=== PATIENT | male | born 1975 | race Caucasian/White ===

== ENCOUNTER 2025-05-29 11:34 | Inpatient (IN) ==
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
[2025-05-29] MEDS: SODIUM CHLORIDE 0.9% 1,000 ML IV SCH (12:29)
[2025-05-29] MEDS: ACETAMINOPHEN 1,000 MG/100 ML VIAL IV STA (12:30)
[2025-05-29 12:50] LABS: Hematocrit (blood only) 41.1 % (42.0-52.0); Hemoglobin 13.5 g/dl (14.0-18.0); Immature Granulocytes # (auto) 0.07 K/uL (0.01-0.20); Immature Granulocytes % (auto) 0.5 %; Mean Corpuscular Hemoglobin 30.2 pg (25.0-34.0); Mean Corpuscular Volume 91.9 fL (80.0-100.0); Platelet Count 176 K/uL (130-400); RDW Standard Deviation 40.7 fL (36.4-46.3); Red Blood Count 4.47 M/uL (4.70-6.10); White Blood Count 14.77 K/ul (4.8-10.8)
[2025-05-29 13:07] LABS: Alanine Aminotransferase 19.0 U/L (7-52); Albumin Globulin Ratio 1.5 (0.9-2); Albumin Level 3.8 gm/dl (3.4-5.0); Alkaline Phosphatase 69.0 U/L (34-104); Anion Gap 6.0 (3-11); Bilirubin,Total 0.6 mg/dl (0.2-1.0); Blood Urea Nitrogen 13.0 mg/dl (6-23); Calcium 8.8 mg/dl (8.6-10.3); Carbon Dioxide 29.0 mmol/L (21-32); Chloride 103.0 mmol/L (98-107); Creatinine Clr Calc Pharmacy 146.3 ml/min; Globulin 2.6 gm/dl (2.5-4.0); Glucose 142.0 mg/dl (70-99(Fasting)); Lipase 18.0 U/L (11-82); Magnesium 1.9 mg/dl (1.7-2.4); Potassium 3.7 mmol/L (3.5-5.1); Sodium 138.0 mmol/L (136-145); Total Protein 6.4 gm/dl (6.0-8.3)
[2025-05-29] MEDS: OPTIRAY 320 100ml IV ONE (13:25)
[2025-05-29 13:28] LABS: INR 1.0 (0.9-1.1); Prothrombin Time 10.4 Seconds (9.0-12.0)
--- NOTE | 2025-05-29 13:48 | CT Scan Report ---
Clinical History: Perineal abscess Technique: Axial computed tomography images were obtained of the abdomen and pelvis after the administration of intravenous contrast. Comparison is made to the prior CT dated 06/03/2024. Findings: The liver is overall of normal size, attenuation, and contour with no sign of cirrhosis or significant fatty infiltration. No liver mass lesion is seen. The portal vein is patent. The gallbladder appears unremarkable. No bile duct dilatation is noted. The spleen is of normal size. No focal splenic lesion is evident. The pancreas appears normal with no sign of acute or chronic pancreatitis and no mass lesion noted. The pancreatic duct is of normal caliber. The adrenal glands appear unremarkable. No definite renal or proximal ureteral calculi are seen on this contrast-enhanced study. There is no hydronephrosis or perinephric stranding. No renal mass lesion is identified. The aorta is of normal caliber. No abdominal adenopathy is seen. The stomach appears normal. There is no sign of small bowel obstruction. The colon appears unremarkable. The appendix appears normal also. No free intraperitoneal fluid or air is identified. No distal ureteral or bladder calculi are seen. No bladder mass lesion is evident. The iliac arteries are of normal caliber. No pelvic adenopathy is noted. There are bilateral vasectomy clips There is a 4 x 3 cm collection of fluid and air in the left perineum, consistent with an abscess. There is mild adjacent soft tissue stranding There is right lung base atelectasis. There is coronary atherosclerosis Mild thoracolumbar degenerative disc disease is seen. No fracture is identified. No focal osseous lesion is seen Impression: 1. 4 cm perianal abscess 2. Right lung base atelectasis 3. Coronary atherosclerosis ACT 112: Positive. There are findings on this exam that require communication between the performing entity and the patient following Patient Test Result Information Act ([place] ACT 112) guidelines. Electronically signed by Ángel Jiang 05-29-2025 13:48 PM
[2025-05-29] MEDS: PIPERACILLIN/TAZOBACTAM 4.5 GM/100 ML BAG IV ONE (14:46)
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
[2025-05-29] MEDS ORDERED: CYCLOBENZAPRINE HCL 5 MG TAB PO PRN (17:53)
[2025-05-29] MEDS: MoRPHine SULFATE 4 MG/ML 1 ML CARP\\VIAL ONE (18:15)
[2025-05-29] MEDS: MoRPHine SULFATE 4 MG/ML 1 ML CARP\\VIAL IV PRN (18:16)
[2025-05-29] MEDS: LACTATED RINGER'S 1,000 ML IV SCH (18:17)
[2025-05-29] MEDS: ACETAMINOPHEN SUSP 325 MG/10.15 ML UDC PO PRN (21:02)
[2025-05-29] MEDS: PIPERACILLIN/TAZOBACTAM 4.5 GM/100 ML BAG IV SCH (21:02)
[2025-05-30 00:06] LABS: Appearance Urine Clear (Clear); Glucose Urine UA Negative (Negative)
[2025-05-30] MEDS: ACETAMINOPHEN 1,000 MG/100 ML VIAL IV STA (04:35)
[2025-05-30 06:24] LABS: Hematocrit (blood only) 38.2 % (42.0-52.0); Hemoglobin 13.2 g/dl (14.0-18.0); Immature Granulocytes # (auto) 0.07 K/uL (0.01-0.20); Immature Granulocytes % (auto) 0.5 %; Mean Corpuscular Hemoglobin 31.7 pg (25.0-34.0); Mean Corpuscular Volume 91.8 fL (80.0-100.0); Platelet Count 179 K/uL (130-400); RDW Standard Deviation 41.1 fL (36.4-46.3); Red Blood Count 4.16 M/uL (4.70-6.10); White Blood Count 14.34 K/ul (4.8-10.8)
[2025-05-30 06:42] LABS: Anion Gap 7.0 (3-11); Blood Urea Nitrogen 10.0 mg/dl (6-23); Calcium 8.5 mg/dl (8.6-10.3); Carbon Dioxide 28.0 mmol/L (21-32); Chloride 103.0 mmol/L (98-107); Creatinine Clr Calc Pharmacy 144.3 ml/min; Glucose 125.0 mg/dl (70-99(Fasting)); Potassium 3.7 mmol/L (3.5-5.1); Sodium 138.0 mmol/L (136-145)
[2025-05-30] MEDS: SODIUM CHLORIDE 0.9% 500 ML IV ONE (08:47)
[2025-05-30] MEDS: CYANOCOBALAMIN (B-12) 500 MCG TABLET PO SCH (08:58)
[2025-05-30] MEDS: ASCORBIC ACID 500 MG TAB PO SCH (08:58)
[2025-05-30] MEDS: CHOLECALCIFEROL 25 MCG (1000 UNITS) TAB PO SCH (08:58)
[2025-05-30] MEDS ORDERED: VANCOMYCIN CONSULT ACTIVE PRN (09:52)
[2025-05-30] MEDS: MoRPHine SULFATE 4 MG/ML 1 ML CARP\\VIAL IV PRN (10:48)
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
--- NOTE | 2025-05-30 11:03 | Electrocardiogram Report ---
Test Reason : Blood Pressure : */* mmHG Vent. Rate : 81 BPM Atrial Rate : 81 BPM P-R Int : 152 ms QRS Dur : 102 ms QT Int : 336 ms P-R-T Axes : -5 -5 -14 degrees QTcB Int : 390 ms Normal sinus rhythm nonspecific T wave abnormality inferior leads Otherwise normal ECG When compared with ECG of 03-Jun-2024 07:20, T wave inversion now evident in Inferior leads Confirmed by Rhina Ash (Sheila) on 05/30/2025 11:03:19 AM Referred By: REFERRED SELF Confirmed By: Rhina Ash
[2025-05-30] MEDS: VANCOMYCIN HCL 2,000 MG in SODIUM CHLORIDE 0.9% 500 ML IV ONE (12:13)
[2025-05-30] MEDS: CLINDAMYCIN/D5W 900 MG/50 ML BAG IV SCH (12:14)
--- NOTE | 2025-05-30 12:20 | Pharmacy Report ---
Pharmacy PK ABX Note - Date of Service May 30, 2025 - Assessment and Plan Assessment 50 year old M receiving vancomycin, clindamycin, and piperacillin/tazobactam for treatment of peritoneal abscess. Pertinent microbiologic data includes: none. Day #1 of antimicrobial therapy. * Previously failed ciprofloxacin/metronidazole outpatient therapy * Presents 05/29/25 to hospital with fever, elevated WBC count Plan Vancomycin * Loading dose: 2000 mg IV x 1 * Maintenance dose: 1750 mg IV every 12 hours * Regimen is predicted to achieve target AUC/ESTEFANI of 400-600 mg/L.hr * Random level ordered for: 06/01/25 @0444 Pharmacy will continue to follow and will adjust dose/frequency as necessary. Thank you. Pharmacy has transitioned to AUC monitoring for vancomycin. AUC/ESTEFANI is the preferred PK/PD target and is associated with decreased risk of nephrotoxicity compared to traditional trough targets.
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
[2025-05-30] MEDS: FAMOTIDINE 20 MG TAB PO ONE (13:10)
[2025-05-30] MEDS: OPTIRAY 320 100ml IV ONE (13:28)
--- NOTE | 2025-05-30 13:48 | CT Scan Report ---
HISTORY: Worsening perineal abscess. TECHNIQUE: Helical CT imaging of the abdomen and pelvis was performed with IV contrast. Images are presented in axial, sagittal, and coronal reformats. COMPARISON: CT of the abdomen pelvis dated 05/29/2025. FINDINGS: Lung Bases/Inferior Mediastinum: Right middle lobe atelectasis. Mild atelectasis at the the basilar lower lobes. Liver: Unremarkable Gallbladder: Unremarkable Spleen: Unremarkable Adrenals: Unremarkable Pancreas: Unremarkable Kidneys: Unremarkable Stomach/Bowel: Distal esophagus, stomach, and duodenum appear unremarkable. The small bowel loops are normal in caliber. Normal caliber appendix in the right upper pelvis. Mild colonic diverticulosis. No CT evidence of acute diverticulitis. Lymph nodes: Unremarkable Vasculature: No abdominal aortic aneurysm. Mild atherosclerotic vascular disease. Pelvis: Urinary bladder is unremarkable. Prostate and seminal vesicles are unremarkable. No free pelvic fluid. Soft Tissues: Perineal soft tissue abscess is again demonstrated involving the medial soft tissues of the left proximal thigh on series 2 image 111 measuring 2.8 x 1.7 x 4.2 cm. This abscess contains mostly gas and a small amount of layering dependent fluid. Surrounding enhancement and soft tissue inflammation.This abscess previously measured 3.6 x 2.8 x 4.5 cm and has decreased in size. Bones: No acute osseous abnormality.Mild multilevel degenerative spondylosis of the lumbar spine. Multilevel central canal and neural foraminal stenosis. No acute osseous abnormality. IMPRESSION: * Left perineal soft tissue abscess is redemonstrated involving the medial soft tissues of the left proximal thigh on series 2 image 11. This has decreased in size since the prior study on 05/29/2025 and now measures 2.8 x 1.7 x 4.2 cm (previously 3.6 x 2.8 x 4.5 cm). The rim-enhancing collection contains mostly gas with a small amount of fluid layering dependently. Significant surrounding soft tissue edema and inflammation. * Additional chronic and/or incidental findings as detailed above. ACT 112: Positive. There are findings on this exam that require communication between the performing entity and the patient following Patient Test Result Information Act ([place] ACT 112) guidelines. Electronically signed by Scott Montano 05-30-2025 13:47 PM
[2025-05-30] MEDS: SODIUM CHLORIDE 0.9% 1,000 ML IV ONE (16:23)
[2025-05-30] MEDS ORDERED: Nursing to Pharmacy Communication SCH (20:00)
[2025-05-30] MEDS ORDERED: VANCOMYCIN HCL 1,750 MG in SODIUM CHLORIDE 0.9% 500 ML IV SCH (22:00)
[2025-05-31] MEDS ORDERED: Nursing to Pharmacy Communication SCH (03:30)
[2025-05-31 06:34] LABS: Hematocrit (blood only) 41.3 % (42.0-52.0); Hemoglobin 14.1 g/dl (14.0-18.0); Immature Granulocytes # (auto) 0.05 K/uL (0.01-0.20); Immature Granulocytes % (auto) 0.5 %; Mean Corpuscular Hemoglobin 31.1 pg (25.0-34.0); Mean Corpuscular Volume 91.2 fL (80.0-100.0); Platelet Count 226 K/uL (130-400); RDW Standard Deviation 40.1 fL (36.4-46.3); Red Blood Count 4.53 M/uL (4.70-6.10); White Blood Count 9.78 K/ul (4.8-10.8)
[2025-05-31 07:05] LABS: Alanine Aminotransferase 30.0 U/L (7-52); Albumin Globulin Ratio 1.2 (0.9-2); Albumin Level 3.8 gm/dl (3.4-5.0); Alkaline Phosphatase 78.0 U/L (34-104); Anion Gap 8.0 (3-11); Bilirubin,Total 0.7 mg/dl (0.2-1.0); Blood Urea Nitrogen 10.0 mg/dl (6-23); Calcium 9.0 mg/dl (8.6-10.3); Carbon Dioxide 27.0 mmol/L (21-32); Chloride 106.0 mmol/L (98-107); Creatinine Clr Calc Pharmacy 133.5 ml/min; Globulin 3.1 gm/dl (2.5-4.0); Glucose 124.0 mg/dl (70-99(Fasting)); Potassium 3.9 mmol/L (3.5-5.1); Sodium 141.0 mmol/L (136-145); Total Protein 6.9 gm/dl (6.0-8.3)
--- NOTE | 2025-05-31 07:06 | History & Physical Bridge Note ---
Date of Service May 31, 2025 History & Physical Bridge Note I have examined the patient, reviewed the History & Physical and in the interval since the performance of the History & Physical I have noted the following changes of clinical significance: no changes noted
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
[2025-05-31] MEDS ORDERED: ONDANSETRON INJ 2 MG/ML 2 ML VIAL ONE (12:16)
[2025-05-31] MEDS ORDERED: PROPOFOL IV EMULSION 10 MG/ML 20 ML VIAL IV ONE (12:16)
[2025-05-31] MEDS ORDERED: LIDOCAINE 2% 2 ML VIAL/AMP(20MG/ML) INFIL ONE (12:16)
[2025-05-31] MEDS ORDERED: MIDAZOLAM HCL 1 MG/ML 2ML VIAL ONE (12:16)
[2025-05-31] MEDS ORDERED: DEXAMETHASONE SOD INJ 4 MG/ML VIAL ONE (12:16)
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
[2025-05-31] MEDS ORDERED: DROPERIDOL 5 MG/2 ML VIAL IV PRN (13:01)
[2025-05-31] MEDS ORDERED: ATROPINE SULFATE 0.1 MG/ML 10ML SYR IV PRN (13:01)
[2025-05-31] MEDS ORDERED: PROMETHAZINE HCL 6.25 MG in SODIUM CHLORIDE 0.9% 50 ML IV PRN (13:01)
[2025-05-31] MEDS: BUPIVACAINE/EPINEPHRINE 0.5% MPF 1:200,000 30 ML VIAL ONE (13:41)
--- NOTE | 2025-05-31 13:45 | Operative Report ---
Post Operative Report Pre & Post Diagnosis Operation Date: 05/31/25 07:00 Pre-Op Diagnosis: PERNIEAL ABSCESS Post-Op Diagnosis: PERNIEAL ABSCESS I identified the patient and participated in the time-out.: No Procedure Operation Date: 05/31/25 07:00 Actual Procedures p Incision and Drainage Perirectal Abscess(Not Applicable) - Finn Vasquez MD Surgeon Finn Vasquez MD Communications Engineering Technician None Estimated Blood Loss 10 Findings Consistent with Post-Op Diagnosis Specimens Interoperative cultures taken Drains None Anesthesia Type General Complications none Disposition Accompanied Patient To Recovery: No Disposition: Recovery Room Indications This is a 50-year-old male admitted to the ED with a peripheral abscess which was refractory to outpatient antibiotics. He was admitted by medicine who had a concern about his EKG and therefore cardiology consult was obtained. Once he was okay we will plan to take him to the OR for an I&D of his perirectal abscess . Description of Procedure The patient was taken to the OR and underwent excellent general anesthesia. They were placed in the lithotomy position and prepped and draped in normal fashion. A good exam under anesthesia was done. An incision was made through the perirectal abscess at the 4 o'clock position. The abscess was opened widely and septations were broken down. Intra-op cultures were then taken. This therefore opened and drained the abscess completely. The cavity was then irrigated. Marcaine was then used for a local block. The wound was then packed with Iodoform gauze and a sterile dressing applied.. They tolerated procedure well without complications. They will be recovered in the recovery room. I attest to the content of the Intraoperative Record and any orders documented therein. Any exceptions are noted below.
[2025-05-31] MEDS: HYDROmorphone INJ 2 MG/ML SYR/VIAL IV PRN (13:54)
--- NOTE | 2025-05-31 14:46 | Anesthesiology Progress Note ---
Date of Service May 31, 2025 Anesthesia Post Procedure Vital Signs Vital Signs: Temp Pulse Pulse Pulse Resp BP BP 05/31/25 14:25 36.2 C L 78 17 132/78 05/31/25 14:15 76 17 132/79 05/31/25 14:05 73 17 134/77 05/31/25 13:55 88 17 135/81 05/31/25 13:48 36.1 C L 94 H 17 152/86 H 05/31/25 12:28 36.7 C 86 18 144/97 H 05/31/25 11:45 37.0 C 82 20 128/85 05/31/25 08:01 36.7 C 78 20 109/66 05/31/25 07:33 81 05/31/25 04:00 37.0 C 80 18 116/71 05/30/25 23:49 36.6 C 77 18 112/71 05/30/25 22:12 71 05/30/25 20:00 37.0 C 83 18 119/70 05/30/25 18:14 37 C 05/30/25 16:03 38.0 C H 101 H 18 119/73 05/30/25 15:14 37.0 C 94 H 16 123/70 Pulse Ox O2 Del Method O2 Flow Rate 05/31/25 14:25 95 Nasal Cannula 2 05/31/25 14:15 95 Nasal Cannula 2 05/31/25 14:05 96 Nasal Cannula 2 05/31/25 13:55 98 Nasal Cannula 2 05/31/25 13:48 94 Room Air 05/31/25 12:28 94 Room Air 05/31/25 11:45 92 Room Air 05/31/25 08:01 93 Room Air 05/31/25 07:33 05/31/25 04:00 93 Room Air 05/30/25 23:49 91 Room Air 05/30/25 22:12 05/30/25 20:00 92 Room Air 05/30/25 18:14 05/30/25 16:03 96 Room Air 05/30/25 15:14 94 Room Air Pain Intensity Rectal: Pain Intensity: 7 Transfer of Care Handoff Completed per policy Notes Mental Status: alert / awake / arousable and participated in evaluation Nausea / Vomiting: adequately controlled Pain: adequately controlled Airway Patency, RR, SpO2: stable & adequate BP & HR: stable & adequate Hydration State: stable & adequate Anesthetic Complications: no major complications apparent and Pt Satisfied with anesthetic care
[2025-05-31] MEDS: GELATIN SPONGE SZ 100 ONE (15:20)
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
[2025-06-01 06:59] LABS: Hematocrit (blood only) 40.6 % (42.0-52.0); Hemoglobin 13.2 g/dl (14.0-18.0); Mean Corpuscular Hemoglobin 29.7 pg (25.0-34.0); Mean Corpuscular Volume 91.4 fL (80.0-100.0); Platelet Count 211 K/uL (130-400); RDW Standard Deviation 39.8 fL (36.4-46.3); Red Blood Count 4.44 M/uL (4.70-6.10); White Blood Count 6.65 K/ul (4.8-10.8)
[2025-06-01 07:16] LABS: Anion Gap 8.0 (3-11); Blood Urea Nitrogen 11.0 mg/dl (6-23); Calcium 9.0 mg/dl (8.6-10.3); Carbon Dioxide 27.0 mmol/L (21-32); Chloride 104.0 mmol/L (98-107); Creatinine Clr Calc Pharmacy 157.0 ml/min; Glucose 117.0 mg/dl (70-99(Fasting)); Potassium 4.0 mmol/L (3.5-5.1); Sodium 139.0 mmol/L (136-145)
--- NOTE | 2025-06-01 12:47 | Surgery Progress Note ---
Date of Service June 01, 2025 Assessment & Plan (1) Perineal abscess: Plan: discharge per medical team dry dressing daily and as needed home on abx F/U my clinic 1-2 weeks Admission and Anticipated Discharge Date Admission Date: May 29, 2025 Subjective pain controlled with meds Review of Systems Constitutional: no fever and no chills Physical Exam Skin: packing removed Results & Data Vital Signs (Past 12 Hours) Vital Signs Temp Pulse Pulse Resp BP BP Pulse Ox 06/01/25 11:40 36.6 C 67 16 114/68 92 06/01/25 07:49 36.7 C 78 16 122/74 96 06/01/25 07:32 72 06/01/25 03:40 36.5 C 77 16 116/67 93 O2 Del Method 06/01/25 11:40 Room Air 06/01/25 07:49 Room Air 06/01/25 07:32 06/01/25 03:40 Room Air
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
[2025-06-02] MEDS: ONDANSETRON INJ 2 MG/ML 2 ML VIAL IV PRN (03:52)
[2025-06-02 07:07] LABS: Hematocrit (blood only) 43.1 % (42.0-52.0); Hemoglobin 14.2 g/dl (14.0-18.0); Mean Corpuscular Hemoglobin 29.8 pg (25.0-34.0); Mean Corpuscular Volume 90.5 fL (80.0-100.0); Platelet Count 252 K/uL (130-400); RDW Standard Deviation 39.5 fL (36.4-46.3); Red Blood Count 4.76 M/uL (4.70-6.10); White Blood Count 7.34 K/ul (4.8-10.8)
[2025-06-02 07:32] LABS: Anion Gap 6.0 (3-11); Blood Urea Nitrogen 14.0 mg/dl (6-23); Calcium 9.2 mg/dl (8.6-10.3); Carbon Dioxide 29.0 mmol/L (21-32); Chloride 105.0 mmol/L (98-107); Creatinine Clr Calc Pharmacy 140.5 ml/min; Glucose 107.0 mg/dl (70-99(Fasting)); Potassium 4.1 mmol/L (3.5-5.1); Sodium 140.0 mmol/L (136-145)
--- NOTE | 2025-06-02 07:59 | Hospitalist Progress Note ---
Date of Service June 02, 2025 Assessment & Plan Admission and Anticipated Discharge Date Admission Date: May 29, 2025 Results & Data Results & Data Vital Signs (Past 12 Hours) Vital Signs Temp Pulse Pulse Resp BP BP Pulse Ox 06/02/25 07:36 36.4 C L 71 16 114/74 92 06/02/25 04:01 74 06/02/25 03:56 105 H 06/02/25 03:26 36.8 C 70 18 139/80 92 06/01/25 23:16 36.6 C 74 16 113/63 92 O2 Del Method 06/02/25 07:36 Room Air 06/02/25 04:01 06/02/25 03:56 06/02/25 03:26 Room Air 06/01/25 23:16 Room Air PG Care Time/CCT Total # of Minutes Spent Total Time Spent with Patient: Total time spent is greater than 50% in coordination of care (as documented) at patient's floor/unit and/or counseling patient: Coding
[2025-06-02] MEDS: ACETAMINOPHEN 500 MG TAB PO SCH (08:38)
--- NOTE | 2025-06-02 15:48 | Discharge Summary ---
Discharge Summary Date of Service June 02, 2025 Principal Dx & Hospital Course #1 = Principal Diagnosis (1) Perineal abscess: (2) Scrotal pain: Plan Mr. Moreno is a 50-year-old male whose active medical conditions include oste oarthritis of multiple joints, hypertension, hyperlipidemia who presented to the [facility] on 06/06 due to lack of resolution of an outpatient diagnosed perineal abscess which was treated with oral antibiotics subsequently with needing an incision and drainage which was performed 05/31. Patient has had no complications subsequent to this procedure; the blood cultures are negati ve at 48 hours, wound cultures had to be reperformed as the initial culture yielded pinpoint growth that was nondiagnostic. The patient is eager for discharge and thus will be discharged on a brief course of oral antibiotics for total 10-day course. They have scheduled follow-up with their general surgeon in the outpatient setting, they are encouraged to call this office if necessary for any complications experienced after discharge Notes For Next Care Provider Medication Changes From Visit Start clindamycin 300 mg p.o. 3 times daily through 06/08 Start hydromorphone 2 mg p.o. every 4 hours as needed, dispense 10 tablets Admission HPI Per Admitting Provider 50-year-old male history of osteoarthritis, chronic back pain, gastroesophageal reflux, depression/anxiety, distant history of viral infection, hyperlipidemia, sleep apnea presents with a 1 month history of swelling and tenderness and pain in the perineum mostly on the right side. States he first noticed about a golf ball sized area of redness about a month ago. No events associated with onset. Noticed some redness and pain. It progressed over the course of several days so he was seen in the emergency department in [place]. They prescribed ciprofloxacin and Flagyl for which she took for the full course. He states that the swelling had improved slightly but not resolved and since then has not returned and progressed. He denies any fevers chills or generalized signs of illness. Secondary to this progressive swelling and marked increase in pain in the last couple of days he came here for evaluation. Initial evaluation in the emergency department with CT scan shows a moderate size abscess in the perianal skin, no evidence of fistula or regional complications. General surgery was curbside and advised IV antibiotics, admission, n.p.o. at midnight for likely incision and drainage in the morning. Discharge Exam General: Adult male in no acute distress Vital Signs: Reviewed HEENT: Moist mucous membranes; extraocular motion intact, pupils equally round reactive to light Pulmonary: Symmetric chest wall excursion without restriction; clear to auscultation bilaterally Cardiovascular: Regular rate and rhythm without murmurs, rubs, or gallops; bilateral radial pulse 2+ Gastrointestinal: Soft, nontender Neurologic: Cranial nerves II through XII grossly intact; no discernible focal weakness nor paresthesias Skin: Surgical site appears well Discharge Plan Discharge Items Patient Disposition: Home - Self-Care Reason For Visit: PERNIEAL ABSCESS Discharge Diagnosis: Perineal abscess s/p I&D Condition on Discharge: Fair Activity: Per Instructions section Non-emergency contact: Primary Care Provider and Surgeon Call non-emergency contact if: you have any medication questions, your symptoms worsen, your pain is not controlled and your temperature is above 101 Follow-up/Referrals: Finn Vasquez MD [Physician] - (S/P I&D perineal abscess) Nadine Enamorado DO [Primary Care Provider] - (Please call your primary care provider to schedule a hospital follow-up appointment within 7-10 days) Diet: Low Fat Fluids: 2000ml (8 cups) Addtl Attending Provider Instructions: You were admitted to [facility] for a perineal abscess that was unresolved with outpatient antibiotic therapy. You underwent incision and drainage without subsequent complication. It was found during your hospital stay that you had multiple risk factors for cardiovascular disease, further assessment at the time of your hospitalization did not reveal any acutely concerning findings. Please maintain follow-up with your surgeons office as they have scheduled. Thank you for choosing [facility] as your healthcare provider. Addtl [employer] Provider Instructions: dry dressing daily to open wound may shower or bath no packing required F/U my clinic 1-2 weeks Pending Studies at Discharge: Yes Studies:: Repeat culture of surgical aspiration Stand-Alone Forms: My [facility], Pain - Opioid Pain Management, Work/School Release Medications and DC Order Prescriptions: New clindamycin HCl 300 mg capsule 300 mg PO TID 7 Days Qty: 21 0RF acetaminophen [Tylenol Extra Strength] 500 mg Tablet 1,000 mg PO Q8H 14 Days Qty: 84 0RF hydromorphone [Dilaudid] 2 mg Tablet 2 mg PO Q4H PRN (Reason: Severe breakthrough pain) 3 Days Qty: 9 0RF Continued cyanocobalamin (vitamin B-12) [Vitamin B-12] 1,000 mcg Tablet 1,000 mcg PO QAM Rx Instructions: otc unable to verify sumatriptan succinate 100 mg tablet 100 mg PO DAILY PRN (Reason: migraines) dextroamphetamine-amphetamine [Adderall] 10 mg tablet 10 mg PO TID PRN (Reason: Other) cyclobenzaprine 5 mg tablet 5 - 10 mg PO HS PRN (Reason: Other) bupropion HCl [Wellbutrin SR] 150 mg tablet sustained-release 12 hr 150 mg PO QAM cholecalciferol (vitamin D3) [Vitamin D3] 25 mcg (1,000 unit) Tablet 25 mcg PO DAILY zinc glycinate 30 mg Capsule 30 mg PO DAILY Discontinued hydrocodone-acetaminophen 10-325 mg Tablet 1 tab PO QID Patient Comments: Original Directions: 1 tab by mouth TID PRN Pain. Pt taking it QID. 05/29/25 ascorbic acid (vitamin C) [Vitamin C] 500 mg Tablet 500 mg PO DAILY vitamin K2 40 mcg Tablet 40 mcg PO DAILY turmeric 400 mg Capsule 400 mg PO DAILY Discharge Orders: Discharge Order (Routine); Ordered 06/02/25 Ordered By: Alexis Hernandez Admission Data Admit Date/Time: 05/29/25 15:35 Attending Provider: Alexis Hernandez Admit Provider: Abimael Arrieta Primary Care Provider: Nadine Enamorado Other Providers: Finn Vasquez; Abimael Arrieta; Rhina Ash Other Interventions: Discharge Summary Assessment (RN) Last Done: 06/02/25 13:00 Hospital Stay Data Consultations 05/29/25 15:25 Consult General Surgery Routine 05/29/25 15:49 ED Decision to Admit Stat 05/29/25 17:53 Consult General Surgery Routine 05/30/25 10:22 Consult Cardiology Stat Procedures Performed Operation Date: 05/31/25 07:00 Actual Procedures p Incision and Drainage Perirectal Abscess(Not Applicable) - Finn Vasquez MD Diagnostic Imagining Performed 05/29/25 12:03 CT abd pelvis IV con only Stat 05/30/25 09:57 CT abd pelvis IV con only Stat Pending Results Patient Have Any Pending Studies at Discharge: Yes Discharge Instructions Given to Patient (Per Discharging Provider) You were admitted to [facility] for a perineal abscess that was unresolved with outpatient antibiotic therapy. You underwent incision and drainage without subsequent complication. It was found during your hospital stay that you had multiple risk factors for cardiovascular disease, further assessment at the time of your hospitalization did not reveal any acutely concerning findings. Please maintain follow-up with your surgeons office as they have scheduled. Thank you for choosing [facility] as your healthcare provider. Total Time Total Time Spent Total Time Spent (In Minutes): I personally spent 60 minutes in today's discharge including review of the patient's previous medical record, operative report, consultations, laboratory assessment, discussion at bedside along with my physical exam Coding Level of Care Code 21194 INP/OBS DISCH >30 MIN Diagnoses Perineal abscess L02.215 Scrotal pain N50.82
--- NOTE | 2025-06-03 11:31 | Coding Query ---
To promote full compliance with coding requirements relating to patient care, provider participation is requested in all cases of pre coder uncertainty. Please assist us with the question(s) below: Coding Question(s): The diagnosis below was documented in the 06/01 Hospitalist Progress Note, then subsequently fell off all further documentation. Please indicate if it is still a possible diagnosis or ruled out. Physician's Response(s): Ruled out as a diagnosis SEPSIS (documented on the 06/01 Hospitalist Progress Note) ( ) Diagnosed and POA. Please specify the most likely source of Sepsis below, in your clinical opinion: ( ) Abscess ( ) Other: Please Specify ( ) Unknown source ( ) Diagnosed and not POA. Please specify the most likely source of Sepsis below, in your clinical opinion: ( ) Abscess ( ) Other: Please Specify ( ) Unknown source ( X ) Ruled out ( ) Other (please specify) MTDD
--- NOTE | 2025-06-07 06:49 | Coding Query ---
CODING QUERY To promote full compliance with coding requirements relating to patient care, provider participation is requested in all cases of floor tiling professional uncertainty. Please assist us with the question(s) below: Coding Question(s): Perineal Abscess is documented in the record and on the 05/30 Surgical Consultation and 05/31 Operative Report, however, the 05/30 Surgical Consultation and 05/31 Operative Report also document Perirectal Abscess. Please clarify below, in your clinical opinion, due to conflicting documentation: ( ) Perineal Abscess ( X ) Perirectal Abscess ( ) Other: Please Specify Physician's Response(s): Thank you Aruna Elkins Principal Diagnosis: "that condition established after study, to be chiefly responsible for occasioning the admission of the patient to the hospital for care." Co-Existing Principal Diagnosis: "when two or more diagnoses equally meet the criteria for principal diagnosis as determined by the circumstances of admission, diagnostic work up, and/or therapy provided, and the Alphabetic Index, Tabular List, or another coding guideline does not provide sequencing direction, any one of the diagnoses may be sequenced first." "When the physician has documented what appears to be a current diagnosis in the body of the record, but has not included the diagnosis in the final diagnostic statement, the physician should be asked whether the diagnosis should be added." (Source Coding Clinic 2 QTR90. p3-4) HIRO
== END 2025-06-02 13:20 | disposition home or self-care (01) | DRG 346 ==
LOC: ED 11:34 → SUATTDRO 15:35 → 3E 15:35 → 2N 20:34